=== PATIENT | female | born 1965 | race Caucasian/White ===

== ENCOUNTER 2023-07-01 15:01 | Outpatient (CLI) | payer BC, SELFPAY ==
--- NOTE | 2023-07-01 15:20 | CRLHL7_ITS ---
For Patients: As a result of the Century Cures Act, medical imaging exams and procedure reports are released immediately into your electronic medical record. You may view this report before your referring provider. If you have questions, please contact your health care provider. BILATERAL SCREENING MAMMOGRAM WITH COMPUTER-AIDED DETECTION AND TOMOSYNTHESIS TECHNIQUE: CC and MLO views were obtained. These mammographic images have been obtained using full-field digital technique. These mammographic images were interpreted with the benefit of computer-aided detection. Breast Tomosynthesis was used in this interpretation. COMPARISON FILM: 10/20/21, 10/05/20, 10/19/16. FINDINGS: The breasts are heterogeneously dense, which may obscure small masses IMPRESSION: There is no radiographic evidence for malignancy. ASSESSMENT: BI-RADS Category 1: Negative RECOMMENDATION: Routine screening mammogram in 1 year. A lay language report of this examination will be provided to the patient. Bhupinder Roland M.D. Diagnostic Radiologist [email or web address] Transcribed: 4:47 p.alysa fong/Dictated by: Bhupinder Roland MD @ 07/04/2023 11:22:00 AM (Electronically Signed)
== END 2023-07-01 15:02 | disposition home or self-care (01) ==
LOC: MAMMO 15:03
PROVIDERS: PCP Family Medicine; Visit Provider Family Medicine
DX: Z12.31 Encounter for screening mammogram for malignant neoplasm of breast (principal); R92.2 Inconclusive mammogram
CPT/HCPCS: 77063; 77067

== ENCOUNTER 2024-01-31 08:15 | Outpatient (CLI) | payer BC, SELFPAY | END 2024-01-31 08:16 | disposition home or self-care (01) | LOC: LKVREF 08:15 | PROVIDERS: PCP Family Medicine; Visit Provider Family Medicine | DX: R10.9 Unspecified abdominal pain (principal) | CPT/HCPCS: 86140 ==

== ENCOUNTER 2024-02-07 06:44 | Emergency (ER) | payer BC, SELFPAY ==
[2024-02-07 06:53] VITALS: BP 149/98; PULSE 85; RESP 16; TEMP 35.9; O2SAT 98; BMI 20.4
[2024-02-07 07:24] LABS: Appearance Urine Clear (Clear); Bilirubin Urine Negative (Negative); Blood Urine Negative (Negative); Color Urine Light yellow (Yellow); Glucose Urine Negative (Negative); Ketones Urine Negative (Negative); Leukocyte Esterase Urine Negative (Negative); Nitrite Urine Negative (Negative); Protein Urine Negative (Negative); Urobilinogen Urine 0.2 (0.2-1.0)
--- NOTE | 2024-02-07 07:30 | CT_ITS ---
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 Site :?[id number] Study:?CT-Abdomen/Pelvis w/ 64cc [id number]/8/2024 7:47:33 AM Ordering Physician:?Dolores Diaz Final Report: INDICATION: Persistent abd pain (RUQ, RLQ, epigastric) TECHNIQUE: CT abdomen and pelvis with 64 cc Isovue 370. IV contrast. COMPARISON: CT abdomen pelvis March 16, 2022. FINDINGS: Simple cysts again noted within the left hepatic lobe measuring up to 1.1 cm. Patent portal vein. Gallbladder and biliary tree are normal. The spleen, adrenal glands and pancreas are within normal limits. The kidneys are unremarkable. No hydronephrosis. No bladder wall thickening. Stomach is decompressed. No evidence of bowel obstruction or inflammation. Moderate stool burden throughout the colon and rectum. Unremarkable appearing appendix. Abdominal aorta normal in caliber with mild atherosclerosis. No enlarged lymph nodes by size criteria. No significant free fluid and no free air. Pelvic organs are unremarkable. The lower chest is unremarkable. IMPRESSION: 1. No evidence of acute intra-abdominal/pelvic process. 2. Moderate stool burden throughout the colon and rectum. Please note that all CT scans at this facility use dose modulation, iterative reconstruction, and/or weight-based dosing when appropriate to reduce radiation dose to as low as reasonably achievable. Dictated by Dandy Greene MD @ 02/07/2024 8:14:42 AM Signed by:?Dandy Greene MD @02/07/2024 8:14:42 AM (Electronic Signature)
--- NOTE | 2024-02-07 07:32 | ED.GENADULT ---
HPI - General Adult General Chief complaint: Abdominal Pain Stated complaint: abdominal pain Time Seen by Provider: 02/07/24 06:45 Source: patient Mode of arrival: ambulatory Limitations: no limitations History of Present Illness HPI narrative: 58-year-old female presents the emergency department for evaluation of pain and very nonspecific symptoms. This is her 3rd medical visit in the last week. She reports to weeks of pain described to me as epigastric radiating to the right upper quadrant and right lower quadrants of the abdomen. She was originally evaluated at the [facility]. This note is reviewed. She had no leukocytosis. Exam was suggestive of constipation. She was recommended to try some milk of magnesia and reports that she did so and had successful bowel movements and was temporarily feeling a little better. She was also referred for a pelvic ultrasound which is coming up next week. A pelvic exam was not performed. She then went into an urgent care clinic through [facility] and it sounds as though an EKG and chest x-ray were performed, these were normal. There were no recommended specific medications. It sounds as though the epigastric pain was radiating more up into the chest at the time of that visit. She reports that when her symptoms originally started she had some body aches and low-grade fever. These have since resolved. She denies any nausea or vomiting. Actually states that food makes the pain a little bit better. It will be better for about 30 minutes after eating. She describes it is a gripping type pain, achy in nature in the epigastrium mainly. Not worsened by any foods, activities or other factors. No trauma or injury. No dysuria. States that her bowels have been moving regularly since she was using the milk of magnesia. No bloody stools. Has not tried any Tylenol or ibuprofen as she states the pain was not bothersome enough to do so. She has also been having intermittent numbness of her face hands and feet, but they all happen at the same time. She admits that she is getting very anxious about what is causing her stomach symptoms. When she gets the facial hand and feet numbness it is always bilateral and they all occurred at about the same time. She will have periods of no numbness and she has no movement deficits. No weakness. No headache. Past medical history notable for hyperlipidemia, only home medicine is a statin. Socially she is a nonsmoker, no allergies. Denies prior history of abdominal surgeries. ROS notable for the nonspecific generalized and neurological changes but mainly for the GI concerns as described above. Otherwise denies times 12 systems. Related Data Home Medications Medication Instructions Recorded Confirmed atorvastatin 40 mg tablet 40 mg PO QPM 02/07/24 02/07/24 Allergies Allergy/AdvReac Type Severity Reaction Status Date / Time No Known Drug Allergies Allergy Verified 02/07/24 07:54 PFSH PFS Medical History History of stress test ?Z92.89 - Personal history of other medical treatment (ICD-10) History of electrocardiography ?Z92.89 - Personal history of other medical treatment (ICD-10) Surgical History History of toe surgery ?Z98.890 - Other specified postprocedural states (ICD-10) History of knee surgery ?Z98.890 - Other specified postprocedural states (ICD-10) Family History Aunt Breast cancer Maternal Grandmother Cardiovascular disease, Onset Age: 73 Mother Cardiovascular disease, Onset Age: 69 Other Schizophrenia Social History Narrative: 3 children Exercises regularly Smoking Status: Never smoker How often do you have a drink containing alcohol: never AUDIT-C Alcohol total score: 0 Non-prescribed substance use: denies use Exam Const: Vital Signs, click to edit/add: Vital Signs - 24 hr 02/07/24 06:53 Temperature 96.6 F L Pulse Rate [Pulse Oximeter] 85 Respiratory Rate 16 Blood Pressure [Ri ght Upper Arm] 149/98 H Pulse Oximetry 98 Oxygen Delivery Me thod Room Air Documenting provider has reviewed patient's vital signs: yes Common normals: no apparent distress and alert General appearance: cooperative and well kempt Other: Anxious but good historian. Moderate insight. HENMT: Common normals: normocephalic Head and scalp: normocephalic Mouth: oral and palatal mucosa normal Throat: posterior oropharynx normal Eye: Common normals: conjunctivae normal General eye: normal appearance of both eyes Conjunctiva: conjunctiva(e) normal Neck & C-Spine: Common normals: full ROM and no lymphadenopathy Resp: Common normals: normal respiratory effort, no use of accessory muscles and clear to auscultation bilaterally Effort & inspection: able to speak in complete sentences Auscultation: clear to auscultation bilaterally Cardio: Common normals: regular rate, regular rhythm, S1 normal heart sound, S2 normal heart sound and no murmurs Rate: regular rate Rhythm: regular rhythm Heart sounds: S1 normal and S2 normal GI: Common normals: Normal to inspection, nondistended, normoactive bowel sounds present, soft to palpation, no hepatosplenomegaly and no masses Palpation: soft and no hepatosplenomegaly Other: Tender to epigastrium and left upper quadrant. No rebound tenderness, guarding or mass. Extremity: Common normals: normal capillary refill and no pedal edema Neuro: Common normals: moves all extremities and no focal motor deficits Sensorium/orientation: alert Psych: Appearance: well kempt Attitude: engaged Mood and affect: anxious Insight: fair Judgement: fair Skin: Common normals: no rashes or lesions noted General skin exam: no rashes or lesions noted Course Course ED Course: Mainly epigastric pain with radiation throughout other areas of the abdomen. No red flag features but this is her 3rd acute medical visit with persistent symptoms. I think moving on to imaging and more advanced labs as warranted. Since her symptoms are so nonspecific, I recommend CT scan. Urinalysis, basic labs including inflammatory markers. No need to repeat the cardiac workup that has already been done. Famotidine 20 mg p.o. x1, await findings. No clinical signs of dehydration, sepsis, severe infection. Differential diagnosis includes constipation, colitis, gastroenteritis, gastritis, gallbladder disease, among others. Suspect gastritis. Symptoms started while on vacation. She also told me that she has been recommended to use antacids in the past but has not recently been doing so. Reevaluation(s) Time of Reevaluation #1: 08:25 Reevaluation #1: Discussed CT, lab findings with patient. She is feeling about the same. It will certainly take time for the mode in to help. I think this is probably multifactorial. I think she was very anxious but also that she had some gastritis, likely viral induced but she is still having constipation contributing to her symptoms. I recommend [id number] famotidine or omeprazole once daily for 10 days. I also recommend MiraLax 17 g every 8 hours until her stools are loose and then titrating to 1 tsp daily for ongoing maintenance in a warm morning beverage. Alarm symptoms were reviewed that would warrant ED presentation. Okay to cancel the pelvic ultrasound that has been scheduled. Primary care follow-up if not improving in 10 days to discuss alternate, less emergent potential etiologies for her symptoms. Vital Signs Vital signs: Initial Vital Signs Temperature 96.6 F L 02/07/24 06:53 Temperature Source Temporal Artery Scan 02/07/24 06:53 Pulse Rate 85 02/07/24 06:53 Respiratory Rate 16 02/07/24 06:53 Blood Pressure 149/98 H 02/07/24 06:53 Blood Pressure Mean 115 H 02/07/24 06:53 Blood Pressure Position Sitting 02/07/24 06:53 Pulse Oximetry 98 02/07/24 06:53 Oxygen Delivery Method Room Air 02/07/24 06:53 Vital Signs Temperature 96.6 F L 02/07/24 06:53 Pulse Rate 85 02/07/24 06:53 Respiratory Rate 16 02/07/24 06:53 Blood Pressure 149/98 H 02/07/24 06:53 Pulse Oximetry 98 02/07/24 06:53 Oxygen Delivery Method Room Air 02/07/24 06:53 Temperature 96.6 F L 02/07/24 06:53 Pulse Rate 85 02/07/24 06:53 Respiratory Rate 16 02/07/24 06:53 Blood Pressure 149/98 H 02/07/24 06:53 Pulse Oximetry 98 02/07/24 06:53 Oxygen Delivery Method Room Air 02/07/24 06:53 Medications Administered Medications: Discontinued Medications Generic Name Dose Route Start Last Admin Trade Name Freq PRN Reason Stop Dose Admin Famotidine 20 mg 02/07/24 07:30 02/07/24 08:00 Famotidine 20 Mg Tablet PO 02/07/24 07:31 20 mg ONCE ONE Administration Medical Decision Making Lab Data Lab results reviewed: Yes I reviewed the patient's lab results Lab results narrative: All completely normal, as expected. Labs: Lab Results 02/07/24 02/07/24 Range/Units 07:19 07:36 WBC 5.08 (4.50-11.00) K/uL RBC 4.34 (4.00-5.20) m/uL Hgb 12.9 (12.0-16.0) gm/dL Hct 38.6 (33.0-51.0) % MCV 89 (80-100) fL MCH 30 (26-34) pg MCHC 33 (32-36) gm/dL RDW Coeff of Terri 12.5 (11.5-15.5) % Plt Count 265 (140-440) K/uL Neut % (Auto) 71.6 (42.0-72.0) % Lymph % (Auto) 21.7 (20-44) % Iron % (Auto) 5.5 (0.0-11.0) % Eos % (Auto) 0.8 (0.0-7.0) % Baso % (Auto) 0.4 (0.0-3.0) % Neut # (Auto) 3.64 (1.7-7.0) K/uL Lymph # (Auto) 1.10 (0.90-2.90) K/uL Iron # (Auto) 0.30 (0.00-0.90) K/UL Eos # (Auto) 0.04 (0.00-0.50) K/uL Baso # (Auto) 0.02 (0.00-0.30) K/uL Abs Immat Gran (auto) 0.00 (0.00-0.30) K/uL Imm/Tot Granulo (auto) 0.0 % Sodium 140 (135-149) mmol/L Potassium 3.7 (3.6-5.1) mmol/L Chloride 106 (96-114) mmol/L Carbon Dioxide 27 (20-32) mmol/L Anion Gap 7 (7-15) mEq/L BUN 20 (7-30) mg/dL Creatinine 0.9 (0.5-1.5) mg/dL Estimated Creat Clear 63.43 Estimated GFR 74 ml/min Glucose 107 (60-115) mg/dL Calcium 9.6 (8.4-10.6) mg/dL Total Bilirubin 0.6 (0.1-1.5) mg/dL AST 24 (12-35) U/L ALT 15 (4-35) U/L Alkaline Phosphatase 85 (40-150) U/L C-Reactive Protein < 0.5 L (0.5-1.0) mg/dL Total Protein 7.3 (6.0-8.3) g/dL Albumin 4.4 (3.3-5.0) g/dL Lipase 45 (23-300) U/L Urine Color Light yellow (Yellow) Urine Appearance Clear (Clear) Urine pH 7.0 (5.0-8.5) Ur Specific [place] 1.010 (1.000-1.030) Urine Protein Negative (Negative) Urine Glucose (UA) Negative (Negative) Urine Ketones Negative (Negative) Urine Blood Negative (Negative) Urine Nitrite Negative (Negative) Urine Bilirubin Negative (Negative) Urine Urobilinogen 0.2 (0.2-1.0) Ur Leukocyte Esterase Negative (Negative) Urine Opiates Screen Negative (Negative) Ur Oxycodone Screen Negative (Negative) Urine Methadone Screen Negative (Negative) Ur Barbiturates Screen Negative (Negative) U Tricyclic Antidepress Negative (Negative) Ur Phencyclidine Scrn Negative (Negative) Ur Amphetamines Screen Negative (Negative) U Methamphetamines Scrn Negative (Negative) U Benzodiazepines Scrn Negative (Negative) Urine Cocaine Screen Negative (Negative) U Marijuana (THC) Screen Negative (Negative) Ur Drug Screen Comment See Note Imaging Data CT scan - abdomen: Attestation: I have reviewed the pertinent imaging results. My impression: Gastric wall still little thickened but mostly just constipation. No free air, no obstruction, no other signs of inflammation. Radiologist's impression: IMPRESSION: 1. No evidence of acute intra-abdominal/pelvic process. 2. Moderate stool burden throughout the colon and rectum. Discharge Plan Discharge Clinical Impression: Constipation Patient Disposition: Home w/ Parent or Adult Condition: Stable Instructions: Constipation (DC) Additional Instructions: As we discussed, the CT scan looks great. You should go ahead and cancel that pelvic ultrasound appointment. Your labs also looked really good. There is no inflammation, infection, anemia, kidney disease, liver problems, urine infection or other abnormality. This is all excellent news. The only notable thing is that you are still showing a lot of constipation in the gut. I suspect that he probably had a viral illness on top of the constipation which is causing your stomach symptoms. I recommend that you use an gtpj-ihk-[id number] acid suppressor like famotidine or omeprazole once daily for the next week. This will help heal that stomach irritation. You were given a dose already here in the ED today. To help clear out the constipation, I recommend MiraLax. This is an osmotic laxative rather than a stimulant laxative and causes less cramping. Your given a dose here in the emergency department. I would recommend that you repeat this 17 g every 8 hours until your bowels move loosely, up to 5 doses. Once you have had good loose bowel movement, back off on the MiraLax to half to 1 tsp every day mixed in a warm morning beverage. Titrate this as needed but I would not decrease it to less than every other day. MiraLax is [id number] and can be purchased at any local pharmacy or grocery store. The generic equivalents are just as good. If you start having high fevers, bloody stools, severe pain or severe weakness, you should come back to the emergency department. Avoid alcohol for the next week until your stomach heals. If things are not improving in 10 days, make a primary care follow-up appointment to discuss the possibility of irritable bowel, food sensitivities or other less dangerous causes. Activity Level: No Restrictions Discharge Diet: Regular Prescriptions: No Action atorvastatin 40 mg tablet 40 mg PO QPM Follow Up/Referrals: Michelle Peres MD [Primary Care Provider] - Stand Alone Forms: [employer] Info Instructions
[2024-02-07 07:34] LABS: Amphetamine Screen Urine Negative (Negative); Barbiturate Screen Urine Negative (Negative); Benzodiazepines Screen Urine Negative (Negative); Cannabinoid Screen Urine Negative (Negative); Cocaine Screen Urine Negative (Negative); Methadone Screen Urine Negative (Negative); Methamphetamines Screen Urine Negative (Negative); Opiate Screen Urine Negative (Negative); Oxycodone Screen Urine Negative (Negative); Phencyclidine Screen Urine Negative (Negative); Tricyclic Antidepressant Urine Negative (Negative)
[2024-02-07 07:45] LABS: Basophils Absolute Auto 0.02 K/uL (0.00-0.30); Basophils Percent Auto 0.4 % (0.0-3.0); Eosinophils Absolute Auto 0.04 K/uL (0.00-0.50); Eosinophils Percent Auto 0.8 % (0.0-7.0); Hematocrit 38.6 % (33.0-51.0); Hemoglobin* 12.9 gm/dL (12.0-16.0); Lymphocytes Percent Auto 21.7 % (20-44); Mean Corpuscular HGB Conc 33 gm/dL (32-36); Mean Corpuscular Hemoglobin 30 pg (26-34); Mean Corpuscular Volume 89 fL (80-100); Monocytes Percent Auto 5.5 % (0.0-11.0); Neutrophils Absolute Auto 3.64 K/uL (1.7-7.0); Neutrophils Percent Auto 71.6 % (42.0-72.0); Platelet Count* 265 K/uL (140-440); RDW Coefficient of Variation % 12.5 % (11.5-15.5); Red Blood Count 4.34 m/uL (4.00-5.20); White Blood Count* 5.08 K/uL (4.50-11.00)
[2024-02-07 07:53] LABS: Slide Review Reflex No
[2024-02-07 07:59] LABS: Albumin* 4.4 g/dL (3.3-5.0); Chloride* 106 mmol/L (96-114); Sodium* 140 mmol/L (135-149)
[2024-02-07 08:00] LABS: Potassium* 3.7 mmol/L (3.6-5.1)
[2024-02-07] MEDS: FAMOTIDINE 20 MG TABLET PO (08:00)
[2024-02-07 08:02] LABS: Alkaline Phosphatase* 85 U/L (40-150); Anion Gap 7 mEq/L (7-15); Aspartate Amino Transferase* 24 U/L (12-35); Bilirubin Total* 0.6 mg/dL (0.1-1.5); Carbon Dioxide* 27 mmol/L (20-32); Creatinine* 0.9 mg/dL (0.5-1.5); Est. Creatinine Clearance* 63.43; Estimated Glomerular Filt Rate 74 ml/min; Lipase* 45 U/L (23-300); Total Protein* 7.3 g/dL (6.0-8.3)
[2024-02-07 08:03] LABS: Alanine Aminotransferase* 15 U/L (4-35); Blood Urea Nitrogen* 20 mg/dL (7-30); Calcium* 9.6 mg/dL (8.4-10.6); Glucose* 107 mg/dL (60-115)
[2024-02-07 08:08] LABS: C Reactive Protein* < 0.5 mg/dL (0.5-1.0)
[2024-02-07] MEDS: polyethylene glycoL 3350 17 GM PACK PO (08:36)
== END 2024-02-07 08:50 | disposition home or self-care (01) ==
PROVIDERS: Emergency Provider Family Medicine; PCP Family Medicine
DX: K59.00 Constipation, unspecified (principal)
CPT/HCPCS: 36415; 74177; 80053; 80306; 81003; 83690; 85025; 86140; 99284; 99285; A9270; Q9967

== ENCOUNTER 2024-02-08 22:23 | Emergency (ER) | payer BC, SELFPAY ==
[2024-02-08 22:30] VITALS: BP 162/93; PULSE 98; RESP 18; TEMP 36.6; O2SAT 98; BMI 20.4
--- NOTE | 2024-02-08 22:36 | ED.GENADULT ---
HPI - General Adult General Chief complaint: Unspecified Complaint, Adult Stated complaint: difficulty swallowing Time Seen by Provider: 02/08/24 22:34 History of Present Illness HPI narrative: Pt states she was here the other night and told she had an intestinal blockage and was put on miralax, last BM this morning and it was loose. now pt states she is having numbness and tingling in her face and down the back of her head. Pt has a headache and blurry vision. This nurse completed a set of neuro 's on pt and they are negative for stroke. Pt tells this nurse it is not a stroke but has to do with her intestinal blockage. states she is tingly all over. 58-year-old woman presenting to the emergency depart with a number of concerns. Was just seen in this emergency department suspected to have constipation. Has used MiraLax in managed to have a loose stool this morning. Had been also complaining of some radicular epigastric pain. New symptoms over last 24 hours include migrating tingling over various locations of her face or arms and now her feet. This can last seconds. She has intermittent blurriness of vision as well. Does admit that she is under lot of stress but has dealt with that fine in the past. Apparently spoke with an ID physician online who was suggesting an H pylori related gastritis and subsequent Guillain-[place]. She has been experiencing this numbness and tingling at the back of her head now more regularly when she goes to lie down. Most particularly alarming was a sensation of inability to swallow for a few seconds as she was I believe lying down with this tingling occurring as she gestures to her throat. Also noticing rather dry mouth Related Data Home Medications Medication Instructions Recorded Confirmed atorvastatin 40 mg tablet 40 mg PO QPM 02/07/24 02/10/24 Allergies Allergy/AdvReac Type Severity Reaction Status Date / Time No Known Drug Allergies Allergy Verified 02/08/24 22:33 Review of Systems Status of ROS: Reports: other (Numerous positive review of systems. No actual weakness.) [facility] Medical History History of stress test ?Z92.89 - Personal history of other medical treatment (ICD-10) Surgical History History of toe surgery ?Z98.890 - Other specified postprocedural states (ICD-10) History of knee surgery ?Z98.890 - Other specified postprocedural states (ICD-10) Family History Aunt Breast cancer Maternal Grandmother Cardiovascular disease, Onset Age: 73 Mother Cardiovascular disease, Onset Age: 69 Other Schizophrenia Social History Narrative: 3 children Exercises regularly Smoking Status: Never smoker How often do you have a drink containing alcohol: never AUDIT-C Alcohol total score: 0 Non-prescribed substance use: denies use Exam Narrative: Exam Narrative: Is pleasant. Does appear anxious. Well-nourished. Carefully casually groomed. Here with supportive spouse. Skin is warm and dry. Does not appear to have sensory deficits. There are no focal weaknesses; full strength throughout Cranial nerves 2-12 intact. Speaking easily fluidly. Neck is supple. DTRs are 1 to 2+ and symmetric. Breathing easily and lungs are clear. Heart in elevated rate and regular rhythm. Blood pressure little bit elevated on arrival as well. Const: Vital Signs, click to edit/add: Vital Signs - 24 hr 02/08/24 22:30 Temperature 97.8 F Pulse Rate [Right Pulse Oximeter] 98 Respiratory Rate 18 Blood Pressure [Ri ght Upper Arm] 162/93 H Pulse Oximetry 98 Oxygen Delivery Me thod Room Air Documenting provider has reviewed patient's vital signs: yes Course Vital Signs Vital signs: Initial Vital Signs Temperature 97.8 F 02/08/24 22:30 Temperature Source Temporal Artery Scan 02/08/24 22:30 Pulse Rate 98 02/08/24 22:30 Pulse Rhythm Regular 02/08/24 22:30 Pulse Strength 3+ Normal 02/08/24 22:30 Respiratory Rate 18 02/08/24 22:30 Blood Pressure 162/93 H 02/08/24 22:30 Blood Pressure Mean 116 H 02/08/24 22:30 Blood Pressure Position Sitting 02/08/24 22:30 Pulse Oximetry 98 02/08/24 22:30 Oxygen Delivery Method Room Air 02/08/24 22:30 Vital Signs Temperature 97.8 F 02/08/24 22:30 Pulse Rate 98 02/08/24 22:30 Respiratory Rate 18 02/08/24 22:30 Blood Pressure 162/93 H 02/08/24 22:30 Pulse Oximetry 98 02/08/24 22:30 Oxygen Delivery Method Room Air 02/08/24 22:30 Temperature 97.8 F 02/08/24 22:30 Pulse Rate 98 02/08/24 22:30 Respiratory Rate 18 02/08/24 22:30 Blood Pressure 162/93 H 02/08/24 22:30 Pulse Oximetry 98 02/08/24 22:30 Oxygen Delivery Method Room Air 02/08/24 22:30 Medical Decision Making MDM Narrative Medical decision making narrative: I appreciate concerns of Guillain-[place]. This does seem inconsistent however. She has no weakness. Good DTRs. There are various/atypical types of Guillain-[place] but I do not think this is 1 of them. If however these described transient paresthesias are escalating we can do some lab work in this regard. Limited ability here. I do not think warrants a spinal tap at this time. Further I would pursue this with Neurology as outpatient partly to obtain follow-up and for labs which would be otherwise send out here. We can do some basic related labs. Trying to added on to blood draw from prior visit if possible. Can look for evidence of elevated inflammation in her body. Can do screening head CT though discussed that of limited diagnosis. This along with some initial lab work might be therapeutic. Head CT reviewed by me looks to be normal, symmetrical. No acute abnormalities. Labs including ESR hemoglobin A1c vitamin B12 TSH RENAE and rheumatoid factor ultimately were WNL I do think symptoms are consistent with/contributed to by anxiety. Constipation should continue to be addressed. Can follow up with primary for evaluation of H pylori Lab Data Lab results reviewed: Yes I reviewed the patient's lab results Labs: Lab Results 02/08/24 Range/Units 23:15 ESR 4 (2-20) mm/hr Hemoglobin A1c 5.2 (0-5.6) % Vitamin B12 918 H (243-894) pg/mL TSH 2.010 (0.270-4.20) uIU/mL Fld RENAE IgG SKYLAR None Detected (None Detected) Rheum Factor (Ref Lab) <10 (0-14) IU/mL Discharge Plan Discharge Clinical Impression: Anxiety, Polyneuropathy, Constipation, Gastritis Patient Disposition: Home w/ Parent or Adult Condition: Stable Additional Instructions: Hydration is always good. Given your concerns it would appear that a more thorough workup through Neurology would be in order. There are other neurological groups in the [facility] area and certainly [place] is a possibility but you might start by contacting [facility] at [phone]. And discuss the recommended evaluation and that you have been through the emergency department with these recommendations for follow-up. As far as the H pylori screening goes, it looks like that would be a stool test for us. This can also be done outpatient. It sounds like it would be good for you to have a primary care provider coordinating some of this workup. You do seem safe at this time. I would continue to work on keeping your bowels moving. Prescriptions: No Action atorvastatin 40 mg tablet 40 mg PO QPM Follow Up/Referrals: Michelle Peres MD [Primary Care Provider] - Stand Alone Forms: [employer] Info Instructions
--- NOTE | 2024-02-08 23:06 | CT_ITS ---
Patient: NASIR DECKER Facility:?[facility] Patient ID:?[id number] Site Patient ID:?[id number]. Site :?[id number] Study:?CT-Head WITHOUT CONTRAST-02/08/2024 11:38:15 PM Ordering Physician:rae Final Report: INDICATION: Difficulty swallowing blurred vision. TECHNIQUE: CT head without contrast. COMPARISON: None. FINDINGS: CSF spaces: Within normal limits for age. Brain parenchyma and extra-axial spaces: The keene-white differentiation is normal. No sign of mass, hemorrhage, or midline shift. No extra-axial fluid collection. Skull base and calvarium: The visualized paranasal sinuses and mastoid air cells demonstrate no acute or significant findings. The visualized orbits are grossly unremarkable. No skull fractures. IMPRESSION: No acute intracranial abnormality on this noncontrast CT scan. Please note that all CT scans at this facility use dose modulation, iterative reconstruction, and/or weight-based dosing when appropriate to reduce radiation dose to as low as reasonably achievable. Dictated by Aguilar Moses MD @ 02/08/2024 11:45:25 PM Signed by:?Aguilar Moses MD @02/08/2024 11:45:25 PM (Electronic Signature)
[2024-02-08 23:40] LABS: Hemoglobin A1C* 5.2 % (0-5.6)
[2024-02-08 23:59] LABS: Erythrocyte SedimentationRate* 4 mm/hr (2-20)
[2024-02-09 00:30] LABS: Vitamin B12* 918 pg/mL (243-894)
[2024-02-11 11:54] LABS: Rheumatoid Factor <10 IU/mL (0-14)
[2024-02-12 01:38] LABS: Anti-Nuclear Ab(ANA)IgG ELISA None Detected (None Detected)
== END 2024-02-09 01:48 | disposition home or self-care (01) ==
PROVIDERS: Emergency Provider Family Medicine; PCP Family Medicine
DX: G62.9 Polyneuropathy, unspecified (principal); K59.00 Constipation, unspecified; K29.70 Gastritis, unspecified, without bleeding; F41.9 Anxiety disorder, unspecified
CPT/HCPCS: 36415; 70450; 82607; 83036; 84443; 85651; 86039; 86431; 99284

== ENCOUNTER 2024-02-11 07:50 | Outpatient (CLI) | payer BC, SELFPAY | END 2024-02-11 07:51 | disposition home or self-care (01) | LOC: NFLDREF 02-24 07:39 | PROVIDERS: PCP Family Medicine; Referring Provider Family Medicine; Visit Provider Family Medicine | DX: R10.9 Unspecified abdominal pain (principal) | CPT/HCPCS: 87338 ==

== ENCOUNTER 2024-04-25 13:10 | Outpatient (CLI) | payer BC, SELFPAY | END 2024-04-25 13:11 | disposition home or self-care (01) | LOC: NFLDREF 05-18 16:21 | PROVIDERS: PCP Internal Medicine; Referring Provider Internal Medicine; Visit Provider Nurse Practitioner Family | DX: N39.0 Urinary tract infection, site not specified (principal); B96.20 Unspecified Escherichia coli [E. coli] as the cause of diseases classified elsewhere | CPT/HCPCS: 87086; 87186 ==

== ENCOUNTER 2024-04-28 12:27 | Outpatient (CLI) | payer BC, SELFPAY | END 2024-04-28 12:28 | disposition home or self-care (01) | PROVIDERS: PCP Internal Medicine; Visit Provider Family Medicine | DX: R10.84 Generalized abdominal pain (principal) | CPT/HCPCS: 80053; 83690 ==

== ENCOUNTER 2024-07-23 12:51 | Outpatient (CLI) | payer BC, SELFPAY ==
--- NOTE | 2024-07-23 13:00 | CRLHL7_ITS ---
For Patients: As a result of the Century Cures Act, medical imaging exams and procedure reports are released immediately into your electronic medical record. You may view this report before your referring provider. If you have questions, please contact your health care provider. BILATERAL SCREENING MAMMOGRAM WITH COMPUTER-AIDED DETECTION AND TOMOSYNTHESIS TECHNIQUE: CC and MLO views were obtained. These mammographic images have been obtained using full-field digital technique. These mammographic images were interpreted with the benefit of computer-aided detection. Breast Tomosynthesis was used in this interpretation. COMPARISON FILM: 07/01/23, 10/20/21, 10/05/20. FINDINGS: The breasts are heterogeneously dense, which may obscure small masses IMPRESSION: There is no radiographic evidence for malignancy. ASSESSMENT: BI-RADS Category 1: Negative RECOMMENDATION: Routine screening mammogram in 1 year. A lay language report of this examination will be provided to the patient. Bhupinder Roland M.D. Diagnostic Radiologist [email or web address] [place]/Dictated by: Bhupinder Roland MD @ 07/24/2024 9:15:00 AM (Electronically Signed)
== END 2024-07-23 12:52 | disposition home or self-care (01) ==
LOC: MAMMO 12:52
PROVIDERS: PCP Family Medicine; Visit Provider Internal Medicine
DX: Z12.31 Encounter for screening mammogram for malignant neoplasm of breast (principal); R92.2 Inconclusive mammogram
CPT/HCPCS: 77063; 77067

== ENCOUNTER 2025-03-16 16:10 | Outpatient (CLI) | payer BC, SELFPAY ==
[2025-03-19 03:56] LABS: HPV Source Cervical; HPV, High Risk by TMA Not Detected
== END 2025-03-16 16:11 | disposition home or self-care (01) ==
PROVIDERS: PCP Family Medicine; Visit Provider Obstetrics & Gynecology
DX: Z12.4 Encounter for screening for malignant neoplasm of cervix (principal); Z11.51 Encounter for screening for human papillomavirus (HPV)
CPT/HCPCS: 87624; 87625; 88141; 88142

== ENCOUNTER 2025-07-27 06:05 | Emergency (ER) | payer BC, SELFPAY ==
[2025-07-27 06:08] VITALS: BP 149/103; PULSE 85; RESP 16; TEMP 35.9; BMI 21.9
--- OUTSIDE RECORDS SUMMARY | 2025-07-27 06:08 | XMS_ITS | Clinical Summary ---
Author Organization [facility] Address [address] [place] [address] Care Team Providers Care Physical Therapy Aid Name Role Phone Lima, Aba Guidry Primary Care Provider Allergies No known active allergies Medications atorvastatin (LIPITOR) 40 MG tabletIndication s:Coronary artery disease involving [place] coronary artery of [place] heart without angina pectoris Take 1 tablet (40 mg) by mouth daily 90 tablet 3 08/21/2021 Active Social History Tobacco Use Types Packs/Day Years Used Date Smoking Tobacco: Never Smokeless Tobacco: Never Adolescent Education Answer Date Record ed Getting School Help Needed Not on file 09/01 Comments No Sex and Gender Information Value Date Recorded Sex Assigned at Female 10/07/2021 7:54 PM CDT Legal 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 Gender Identity Female 10/07/2021 7:54 PM CDT Sexual Orientation Straight 10/07/2021 7: 54 PM CDT Last Filed Vital Signs Vital Sign Reading Time Taken Comments Blood Pressure 167/97 09/12/2021 12:04 AM CDT Pulse 78 09/12/2021 12:04 AM CDT Temperature 36.9 C (98.5 F) 09/12/2021 12:04 AM CDT Respiratory Rate 14 09/12/2021 12:04 AM CDT Oxygen Saturation 100% 09/12/2021 12:04 AM CDT Inhaled Oxygen Concentration - - Weight 60.9 kg (134 lb 4.8 oz) 08/21/2021 1:35 P M CDT Height 170.2 cm (5' 7) 08/21/2021 1:35 PM CDT Body Mass Index 21.03 08/21/2021 1:35 PM CDT Plan of Treatment Not on file Insurance [facility] [place] [address] Care Teams Physical Therapy Aid Relationship Specialty Start Date End Date Aba Amato [address] [address] PCP - General Family Medicine 08/16/21
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
--- OUTSIDE RECORDS SUMMARY | 2025-07-27 06:08 | XMS_ITS | CCD ---
Author Name Interface, [id number] lity Address [address] [place], [place] [address] Organization [facility] Address [facility] [address] [address] Care Team Providers Care Director Of Digital Marketing Name Role Phone David BARAJAS, YISSEL, Esther Unavailable Unavaila ble Reason for Visit Problems Social History
--- OUTSIDE RECORDS SUMMARY | 2025-07-27 06:08 | XMS_ITS | Clinical Summary ---
Author Organization [facility] Address [address] [place] [address] Care Team Providers Care Cloth Stock Sorter Name Role Phone Pcp, No Primary Care Provider Unavailabl e Medications atorvastatin (LIPITOR) 40 mg tablet TAKE ONE TABLET BY MOUTH ONE TIME DAILY IN THE EVENING* Active Social History Tobacco Use Types Packs/Day Years Used Date Smoking Tobacco: Never Passive Smoke Exposure: Never Smokeless Tobacco: Never Tobacco Cessation:Counseling Given: Not Answered Alcohol Use Standard Drinks/Week Comments Not Currently 0 (1 standard drink = 0.6 oz pur e alcohol) Comments Unknown Sex and Gender Information Value Date Recorded Sex Assigned at Not on file 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 Gender Identity Not on file Sexual Orientation Not on file Obstetrics History Last Filed Vital Signs Vital Sign Reading Time Taken Comments Blood Pressure 153/95 02/05/2024 12:38 PM HOTEL CONTROLLER Pulse 84 02/05/2024 12:38 PM HOTEL CONTROLLER Temperature 37.3 C (99.2 F) 02/05/2024 12:38 PM HOTEL CONTROLLER Respiratory Rate 16 02/05/2024 12:38 PM HOTEL CONTROLLER Oxygen Saturation 98% 02/05/2024 12:38 PM HOTEL CONTROLLER Inhaled Oxygen Concentration - - Weight 59 kg (130 lb) 02/05/2024 12:38 PM HOTEL CONTROLLER Height 170.2 cm (5' 7) 02/05/2024 12:38 PM HOTEL CONTROLLER Body Mass Index 20.36 02/05/2024 12:38 PM HOTEL CONTROLLER Plan of Treatment Health Maintenance Due Date Last Done Comments Tetanus booster 1976 Depression screening for age 12+ 1977 HIV for age 15-65 1980 Hepatitis C screening for ag e 18-79 1983 Pap test for age 21-65 1986 Colonoscopy through age 75 2010 Lipids for age 45-75 2010 Mammogram for age 45-75 2010 Pneumococcal series for age 50+ (1 of 1 - PCV) 2015 Zoster (shingles) series for age 50+ (1 of 2) 2015 COVID-19 vaccine series ( - 2023- season) 2024 08/08/2022, 07/18/2022 BMI (ht and wt on same day) for age 18+ 02/04/2025 02/05/2024 Influenza Vaccine (#1) 2025 RSV vaccine for adults or (1 - 1-dose 75+ series) 2040 Hepatitis B series for 19+ Aged Out N o longer eligible based on patient's age to complete this topic Insurance [facility] Care Teams Cloth Stock Sorter Relationship Specialty Start Date End Date Pcp, No . PCP - General 02/05/24
--- NOTE | 2025-07-27 06:34 | CRLHL7_ITS ---
For Patients: As a result of the Century Cures Act, medical imaging exams and procedure reports are released immediately into your electronic medical record. You may view this report before your referring provider. If you have questions, please contact your health care provider. INDICATION: Headache TECHNIQUE: CT head without contrast. COMPARISON: None. FINDINGS: symmetric. The ventricles, sulci and cisterns are normal. BRAIN: The brain parenchyma is normal. No acute transcortical infarct or hemorrhage is seen. VASCULATURE: No acute abnormality on this noncontrast exam. EXTRA-AXIAL: Extra-axial spaces are normal. EXTRA-CRANIAL: Skull bones are normal. The visualized sinuses and mastoids are clear. Orbits are normal. IMPRESSION: No acute intracranial abnormality. Please note that all CT scans at this facility use dose modulation, iterative reconstruction, and/or weight-based dosing when appropriate to reduce radiation dose to as low as reasonably achievable. Dictated by Anna Tsang MD @ 07/27/2025 6:56:56 AM (Electronically Signed)
--- NOTE | 2025-07-27 06:37 | ED_ITS ---
HPI - Headache General Date Seen: 07/27/25 Chief Complaint: Headache/Migraine Stated Complaint: headache, lower back pain Time Seen by Provider: 07/27/25 06:21 Source: patient Mode of arrival: ambulatory Limitations: no limitations History of Present Illness HPI Narrative: Patient is a 60-year-old female with a history of coronary artery disease, hypertension presenting to the emergency department for a headache. States she has had a history of migraines before states the migraine in the past has had similar to this other than this time her headache has been going on for longer and is more intense. The headache has been going on for the past 3 days. Nothing seems to make it better. Has been trying [id number] headache medication that usually helps her but this time they have not helped. States touching the back of her head or laying down being seems to make the pain worse. Was concerned because she is also having right thigh numbness intermittently for the past couple weeks. States she does not wear any tight clothing other than leggings, which she states are not that tight. Was told to come in by a friend because the friend had a sister with similar symptoms and of having cancer. The patient also states she has been having polyuria. Denies any dysuria. Is also having some mild low back pain but denies any saddle anesthesia, fevers, chills, urinary retention. Related Data Previous Rx's ?Medication ?Instructions ?Recorded atorvastatin 40 mg tablet 40 mg PO QHS #90 tabs atovaquone 250 mg-proguanil 100 mg 1 tab PO DAILY #72 tabs 03/16/25 tablet azithromycin 500 mg tablet 500 mg PO QDAY #6 tabs 03/02 04/25 estradiol 0.01% (0.1 mg/gram) 1 g vaginal 3XW #42.5 gr ams 03/16/25 vaginal cream Allergies Allergy/AdvReac Type Severity Reaction Status Date / Time No Known Drug Allergies Allergy Verified 03/16/25 16:03 Review of Systems Status of ROS: Reports: 10 or more systems reviewed and unremarkable except as noted in History and below [facility] Medical History History of stress test ?Z92.89 - Personal history of other medical treatment (ICD-10) Surgical History History of toe surgery ?Z98.890 - Other specified postprocedural states (ICD-10) History of knee surgery ?Z98.890 - Other specified postprocedural states (ICD-10) Family History Aunt Breast cancer Maternal Grandmother Cardiovascular disease, Onset Age: 73 Mother Cardiovascular disease, Onset Age: 69 Other Schizophrenia Social History Narrative: 3 children Exercises regularly What is your current living situation?: I presently have a place to live Problems where you live: no known problems In the past 12 months, utilities in danger of being shut off: no In past 12 months, lack of transportation kept you from medical appts, meetings, work, or getting things needed for daily living: no In the past 12 mos, have been you worried that your food would run out before you had money to buy more?: never true In the past 12 mos, the food you bought just didn't last and you didn't have money to buy more?: never true Smoking Status: Never smoker How often do you have a drink containing alcohol: never AUDIT-C Alcohol total score: 0 Non-prescribed substance use: denies use How often does anyone, including family, friends and others, physically hurt you : never How often does anyone, including family, friends and others, insult or talk down to you: never How often does anyone, including family, friends and others, threaten you with harm: never How often does anyone, including family, friends and others, scream or curse at you: never Exam Narrative: Exam Narrative: Const: Well-nourished, Well-developed, in mild distress Eyes: PERRL, no conjunctival injection, and symmetrical lids HENT: Atraumatic external nose and ears. Moist mucous membranes. Neck: Symmetric, trachea midline, No thyromegaly. CVS: RRR, No murmurs or gallops. Peripheral pulses 2+ and equal in all extremities RESP: Unlabored respiratory effort. Clear to auscultation bilaterally. GI: Nontender/Nondistended, No rebound or guarding. MSK:Extremities w/o deformity, Normal Active ROM Skin: Warm, Dry. No rashes or lesions. Neuro: Normal Muscle tone, No focal neurological deficits. Psych: Awake, Alert, & Oriented x3. Appropriate mood and affect. Const: Vital Signs, click to edit/add: Vital Signs - 24 hr 07/27/25 06:08 07/27/25 07:23 Temperature 96.6 F L Pulse Rate [Pulse Oximeter] 85 74 Respiratory Rate 16 16 Blood Pressure [Ri ght Upper Arm] 149/103 H 144/87 H Pulse Oximetry 98 Oxygen Delivery Me thod Room Air Room Air Course Vital Signs Vital signs: Initial Vital Signs Temperature 96.6 F L 07/27/25 06:08 Temperature Source Temporal Artery Scan 07/27/25 06:08 Pulse Rate 85 07/27/25 06:08 Respiratory Rate 16 07/27/25 06:08 Blood Pressure 149/103 H 07/27/25 06:08 Blood Pressure Mean 118 H 07/27/25 06:08 Blood Pressure Position Sitting 07/27/25 06:08 Oxygen Delivery Method Room Air 07/27/25 06:08 Vital Signs Temperature 96.6 F L 07/27/25 06:08 Pulse Rate 85 07/27/25 06:08 Respiratory Rate 16 07/27/25 06:08 Blood Pressure 149/103 H 07/27/25 06:08 Oxygen Delivery Method Room Air 07/27/25 06:08 Temperature 96.6 F L 07/27/25 06:08 Pulse Rate 74 07/27/25 07:23 Respiratory Rate 16 07/27/25 07:23 Blood Pressure 144/87 H 07/27/25 07:23 Pulse Oximetry 98 07/27/25 07:23 Oxygen Delivery Method Room Air 07/27/25 07:23 Medications Administered Medications: Generic Name Dose Route Start Last Admin Trade Name Freq PRN Reason Stop Dose Admin Lactated Ringer's 1,000 mls @ 1,000 mls/hr 07/27/25 06:34 07/27/25 06:46 Lactated Ringers 1000 Ml IV 07/27/25 07:33 1,000 mls/hr .Q1H ONE Administration Discontinued Medications Generic Name Dose Route Start Last Admin Trade Name Freq PRN Reason Stop Dose Admin Diphenhydramine HCl 25 mg 07/27/25 06:34 07/27/25 06:45 Diphenhydramine 50 Mg/Ml Inj IVP 07/27/25 06:35 25 mg ONCE ONE Administration Ketorolac Tromethamine 15 mg 07/27/25 06:34 07/27/25 06:45 Ketorolac 15 Mg/Ml Inj IVP 07/27/25 06:35 15 mg ONCE ONE Administration Metoclopramide HCl 10 mg 07/27/25 06:34 07/27/25 06:45 Metoclopramide Hcl 5 Mg/Ml Inj IVP 07/27/25 06:35 10 mg ONCE ONE Administration MDM - Headache MDM Narrative Medical decision making narrative: Patient is a 60-year-old female presenting to emergency department for headache. Differential at this time includes migraine, tension headache, cluster headache, seems is likely to be intracranial mass but will do a CT scan for better evaluation. Will treat her with a migraine cocktail. She is having the low back pain but is having no red flag symptoms for cauda equina. The intermittent thigh numbness is likely from a nerve compression and can be follow-up outpatient. She is having polyuria so I will order a urinalysis. Patient is feeling better after the migraine cocktail. Head CT reviewed by myself and the radiologist shows no acute concerning abnormalities. She is unable to provide a urine but I am not too concerned about a UTI as she is not having any pain only symptom was the polyuria. I do believe she is safe for discharge. She is agreeable to this plan. Imaging Data CT scan - head: Attestation: I have reviewed the pertinent imaging results. Radiologist's impression: No acute intracranial abnormality. Please note that all CT scans at this facility use dose modulation, iterative reconstruction, and/or weight-based dosing when appropriate to reduce radiation dose to as low as reasonably achievable. Dictated by Anna Tsang MD @ 07/27/2025 6:56:56 AM Discharge Plan Discharge Clinical Impression: Headache Qualifiers: Headache type: unspecified Headache chronicity pattern: unspecified pattern Intractability: not intractable Qualified Code(s): R51.9 - Headache, unspecified Patient Disposition: Home, Self-Care Condition: Improved Instructions: Acute Headache (DC) Additional Instructions: Follow-up with your primary care provider if headache returns. Take Tylenol and ibuprofen for your pain. Return to emergency department for any other new or worsening symptoms. Prescriptions: No Action atorvastatin 40 mg tablet 40 mg PO QHS Qty: 90 3RF estradiol 0.01 % (0.1 mg/gram) cream 1 g vaginal 3XW Qty: 42.5 0RF Rx Instructions: Use nightly for 2 weeks, then 3x per week until follow up azithromycin 500 mg tablet 500 mg PO QDAY Qty: 6 0RF Rx Instructions: For self-treatment of traveller's diarrhea not helped with over the counter medications atovaquone-proguanil 250-100 mg tablet 1 tab PO DAILY Qty: 72 0RF Rx Instructions: START TWO DAYS PRIOR TO ENTERING MALARIA ENDEMIC AREA AND CONTINUE DURING STAY AND FOR 7 DAYS AFTER RETURNING Follow Up/Referrals: Richard Monteiro MD [Primary Care Provider, Family Practice] Stand Alone Forms: [employer] [place] Info Instructions
--- OUTSIDE RECORDS SUMMARY | 2025-07-27 06:42 | XMS_ITS | CCD ---
Author Name Interface, [id number] lity Address [address] [place], [place] [address] Organization [facility] Address [facility] [address] [address] Care Team Providers Care Log Rider Name Role Phone David BARAJAS, YISSEL, Esther Unavailable Unavaila ble Reason for Visit Problems Social History
--- OUTSIDE RECORDS SUMMARY | 2025-07-27 06:42 | XMS_ITS | CCD ---
Author Name Interface, [id number] lity Address [address] [place], [place] [id number] Organization [facility] Address [facility] [address] [address] Care Team Providers Care Metal Machine Setter Name Role Phone David BARAJAS, YISSEL, Esther Unavailable Unavaila ble Reason for Visit Problems Social History
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
[2025-07-27] MEDS: METOCLOPRAMIDE HCL 5 MG/ML INJ 10 MG IVP (06:45)
[2025-07-27] MEDS: LACTATED RINGERS 1000 ML 1,000 ML IV (06:46)
[2025-07-27 07:23] VITALS: BP 144/87; PULSE 74; RESP 16; O2SAT 98
== END 2025-07-27 07:33 | disposition home or self-care (01) ==
PROVIDERS: Emergency Provider Student in an Organized Health Care Education/Training Program; PCP Family Medicine
DX: R51.9 Headache, unspecified (principal); M54.50 Low back pain, unspecified; R35.89 Other polyuria
CPT/HCPCS: 70450; 81001; 96374; 96375; 99284; J1200; J1885; J2765; J7120

== ENCOUNTER 2025-09-13 15:08 | Outpatient (CLI) | payer BC, SELFPAY ==
--- NOTE | 2025-09-13 15:20 | CRLHL7_ITS ---
For Patients: As a result of the Century Cures Act, medical imaging exams and procedure reports are released immediately into your electronic medical record. You may view this report before your referring provider. If you have questions, please contact your health care provider. INDICATION: BILATERAL SCREENING MAMMOGRAM, ASYMPTOMATIC 60 Y/O FEMALE COMPARISON: 07/23/2024, 07/01/2023, 10/05/2020 TECHNIQUE: Digital mammogram in CC and MLO projections including computer-aided detection (CAD) and tomosynthesis. BREAST COMPOSITION: There are scattered areas of fibroglandular density. FINDINGS: No suspicious findings. ASSESSMENT: BI-RADS 1 Negative RECOMMENDATION: Annual screening mammogram. A lay language report of this examination will be provided to the patient. Dictated by: Brinda Hall MD @ 09/14/2025 18:33:34 (Electronically Signed)
== END 2025-09-13 15:09 | disposition home or self-care (01) ==
LOC: MAMMO 15:08
PROVIDERS: PCP Family Medicine; Visit Provider Obstetrics & Gynecology
DX: Z12.31 Encounter for screening mammogram for malignant neoplasm of breast (principal)
CPT/HCPCS: 77063; 77067